=== PATIENT | female | born 1950 | race Hispanic/Latino ===

== ENCOUNTER → 2019-02-12 | Day surgery (SDC) | payer MEDICARE, OTHER ==
[2019-02-07 15:27] LABS: BASOPHILS # (AUTO) 0.1 (0.0-0.1); BASOPHILS % 0.6 % (0.0-1.0); EOSINOPHILS # (AUTO) 0.1 (0.0-0.4); EOSINOPHILS % 1.6 % (0.0-6.0); HEMATOCRIT 40.5 % (34.2-44.1); HEMOGLOBIN 13.5 g/dL (12.0-16.0); LYMPHOCYTES # (AUTO) 2.4 (1.0-3.2); MEAN CORPUSCULAR HEMOGLOBIN 30.1 pg (28-32); MEAN CORPUSCULAR HGB CONC 33.3 g/dL (31-35); MEAN CORPUSCULAR VOLUME 90.2 fL (81-99); MONOCYTES # (AUTO) 0.6 (0.2-0.8); MONOCYTES % 7.3 % (4.4-11.3); NEUTROPHILS % 61.1 % (38.7-80.0); PLATELET COUNT 239 x10e3/uL (140-360); RED BLOOD COUNT 4.49 x10e6/uL (3.6-5.1); RED CELL DISTRIBUTION WIDTH 13.5 % (11.7-14.4)
[2019-02-07 15:41] LABS: ANION GAP 11.7 mmol/L (8-16); BLOOD UREA NITROGEN 24 mg/dL (7-26); BUN/CREATININE RATIO 26 (6-25); CALCIUM 10.2 mg/dL (8.4-10.2); CARBON DIOXIDE 26 mmol/L (22-29); CHLORIDE 106 mmol/L (98-107); CREATININE, SERUM 0.92 mg/dL (0.57-1.11); EST GLOMERULAR FILTRATION RATE > 60 ML/MIN (60-); GLUCOSE 103 mg/dL (74-118); POTASSIUM 4.7 mmol/L (3.5-5.1); SODIUM 139 mmol/L (136-145)
--- NOTE | 2019-02-07 16:16 | Diagnostic Imaging Report ---
EXAMINATION: CHEST 2 VIEWS INDICATION: Pre-op orders. COMPARISON: None FINDINGS: TUBES and LINES: None. LUNGS: Lungs are well inflated. There is no evidence of pneumonia or pulmonary edema. PLEURA: No pleural effusion or pneumothorax. HEART AND MEDIASTINUM: The cardiomediastinal silhouette is unremarkable. BONES AND SOFT TISSUES: No acute osseous abnormality. There is a healed fracture of the right mid clavicle. UPPER ABDOMEN: No free air under the diaphragm. There are cholecystectomy clips. IMPRESSION: No acute radiographic abnormality. Signed by: Dr. Suraj Conti MD on 02/07/2019 4:13 PM
[~2019-02-12] MED LIST: AMLODIPINE BESY10 MG PO; ATORVASTATIN CA40 MG PO; DEXAMETHASONE SOD PHOS INJ 4 MG/ML VIAL ONE; FAMOTIDINE20 MG PO; FENTANYL CITRATE/PF 100MCG/2 ML INJ ONE; IOPAMIDOL 610MG/1ML 300 MG/ML VIAL IV ONE; JANUVIA100 MG PO; LEVOFLOXACIN 500MG/D5W 100ML 100 ML IV ONE; LIDOCAINE HCL 2% LOCAL INJ 5 ML SDV VIAL INJ ONE; LISINOPRIL10 MG PO; METOCLOPRAMIDE10 MG PO; MIDAZOLAM HCL 2 MG/2 ML VIAL ONE; OMEPRAZOLE40 MG PO; ONDANSETRON HCL INJ 2MG/ML 2ML 2 MG/ML VIAL ONE; PROPOFOL IV EMULSION 10 MG/ML 20 ML VIAL ONE; SEVOFLURANE INHAL SOLN 250 ML PEN BTL ONE; URSODIOL300 MG PO
--- OUTSIDE RECORDS SUMMARY | 2019-02-12 05:14 | XMS REPORT ---
Author Author [facility] Organization [facility] Address Unknown Phone Unavailable Care Team Providers Care Yarn Winder Name Role Phone LANDEN VANESSA Unavailable Unavailable ANMOL ZULETA Unavailable Unavailable Payers Payer Name Policy Type Policy Number Effective Date Expiration Date Problems This patient has no known problems. Allergies, Adverse Reactions, Alerts Allergy Name Allergy Type Status Severity Reaction(s) Onset Date Inactive Date Treating Clinician Comments ciprofloxacin HCl DA Active PR 2018-03-12 00:00:00 Penicillins DA Active MO 2018-03-12 00:00:00 ciprofloxacin DA Active MO 2018-03-12 00:00:00 LACTOSE INTOLERANT DA Active U 2012-06-30 00:00:00 Medications This patient has no known medications. Results Test Description Test Time Test Comments Text Results Atomic Results Result Comments CHEST 2 VIEWS 2019-02-07 16:11:00 [facility] [address] [address] Patient Name: EULALIA IBANEZ MR #: [id number] : 1950 Age/Sex: 68/F Req #: [id number] Adm Physician: Ordered by: LANDEN VANESSA MD Report #: [id number] Location: OR Room/Bed: Procedure: [id number] DX/CHEST 2 VIEWS Exam Date: 02/07/19 Exam Time: 1514 REPORT STATUS: Signed EXAMINATION: CHEST 2 VIEWS INDICATION: Pre-op or ders. COMPARISON: None FINDINGS: TUBES and LINES: None. LUNGS: Lungs are well inflated. There is no evidence of pneumonia or pulmonary edema. PLEURA: No pleural effusion or pneumothorax. HEART AND MEDIASTINUM: The cardiomediastinal silhouette is unremarkable. BONES AND SOFT TISSUES: No acute osseous abnormality. There is a healed fracture of the right mid clavicle. UPPER ABDOMEN: No free air under the diaphragm. There are cholecystectomy clips. IMPRESSION: No acute radiographic abnormality. Signed by: Dr. Deuce Moreland MD on 02/07/2019 4:13 PM Dictated By: DEUCE MORELAND MD 1613 Transcribed By: MARISA on 02/07/19 1613 COPY TO: LANDEN VANESSA MD CT, ABDOMEN 2017-06-14 22:10:00 Reason for exam:->abdominal pain FINAL REPORT CLINICAL HISTORY: Left lower quadrant pain FINDINGS: Multiple axial images of the abdomen and pelvis were performed after the uncomplicated administration of IV contrast. Oral contrast was not given. This exam was performed according to our departmental dose-optimization program, which includes automated exposure control, adjustment of the mA and/or kV according to patient size and/or use of the iterative reconstruction technique. Comparison:None. Lower chest: Bilateral dependent atelectasis. No pleural effusion or pneumothorax. Visualized cardiac contours normal. Liver: Several hepatic cysts and hypodensities too small to characterize. The largest is in the right liver measuring 3.6 x 3.0 cm. Gallbladder and biliary tree: Previous cholecystectomy Spleen: No significant findings. Adrenal Glands: No significant findings. Kidneys and ureters: Bilateral subcentimeter hypodensities, too small to characterize Stomach and Duodenum: Small hiatal hernia Pancreas: No significant findings. Bowel: No obstruction or pneumatosis intestinalis Appendix: Normal. Bladder: No significant findings. Major vascular structures: No significant findings. Reproductive organs: No significant findings. Other: Small, fat filled umbilical hernia and adjacent, small fat filled supraumbilical hernia. Skeleton: Bilateral L5 pars defects with grade 1 anterolisthesis of L5 on S1 and associated degenerative change IMPRESSION: No acute abnormality to explain the patient's left lower quadrant pain. Small hiatal hernia. Previous cholecystectomy. Small fat filled umbilical and adjacent superimposed focal midline ventral hernias. Bilateral L5 pars defects with associated grade 1 anterolisthesis of L5 on S1 and degenerative change. Signed: Evelyn Ventura MDReport Verified Date/Time: 06/14/2017 22:10:49 Reading Location: [address] Reading Room ALYSIS W/ MICROSCOPIC 2017-06-14 19:38:00 COLOR (BEAKER) (test qrdk=439) Yellow CLARITY (BEAKER) (test jein=922) Clear SPECIFIC GRAVITY UA (BEAKER) (test xzmc=202) 1.017 1.001-1.035 PH UA (BEAKER) (test tnyk=096) 6.5 5.0-8.0 PROTEIN UA (BEAKER) (test csps=647) Negative Negative GLUCOSE UA (BEAKER) (test rbpn=395) Negative Negative KETONES UA (BEAKER) (test abma=047) Negative Negative BILIRUBIN UA (BEAKER) (test hlga=358) Negative Negative BLOOD UA (BEAKER) (test lzxh=936) Negative Negative NITRITE UA (BEAKER) (test pkap=724) Negative Negative LEUKOCYTE ESTERASE UA (BEAKER) (test ahrk=894) Large Negative UROBILINOGEN UA (BEAKER) (test aorz=674) 2.0 mg/dL 0.2-1.0 RBC UA (BEAKER) (test rjxd=330) < /HPF WBC UA (BEAKER) (test twmn=048) 10 /HPF MUCUS (BEAKER) (test grth=2744) Rare SQUAMOUS EPITHELIAL (BEAKER) (test lkkf=731) 9 /HPF SOURCE(BEAKER) (test wepo=9154) Urine, Clean Catch CREATINE KINASE (CK), TOTAL AND [id number] 19:30:00* Test Item Value Reference Range Comments CREATINE KINASE TOTAL (BEAKER) (test xrep=375) 84 U/L 29-200 CREATINE KINASE-MB (BEAKER) (test uylu=508) 1.2 ng/mL 0.0-6.6 CREATINE KINASE-MB INDEX (BEAKER) (test ivox=143) 1.4 % CK-MB Reference Range:<6.7 Normal6.7-10.0 Borderline>10.0 Abnormal TROPONIN [id number] 19:30:00* Test Item Value Reference Range Comments TROPONIN I (BEAKER) (test ntzw=060) < ng/mL 0.00-0.03 Troponin I (TnI) levels must be interpreted in the context of the presenting sym ptoms and the clinical findings. Elevated TnI levels indicate myocardial damage, but are not specific for ischemic heart disease. Elevated TnI levels are seen in patients with other cardiac conditions (including myocarditis and congestive h eart failure), and slight TnI elevations occur in patients with other conditions , including sepsis, renal failure, acidosis, acute neurological disease, and per sistent tachyarrhythmia.BASIC METABOLIC [id number] 19:26:00* Test Item Value Reference Range Comments SODIUM (BEAKER) (test xxsu=592) 141 meq/L 136-145 POTASSIUM (BEAKER) (test jrkm=597) 4.1 meq/L 3.5-5.1 Specimen slightly hemolyzed CHLORIDE (BEAKER) (test uhwq=220) 107 meq/L 98-107 CO2 (BEAKER) (test gpvq=572) 24 meq/L 22-29 BLOOD UREA NITROGEN (BEAKER) (test xkzi=346) 19 mg/dL 7-21 CREATININE (BEAKER) (test jxqu=231) 0.93 mg/dL 0.57-1.25 Specimen slightly hemolyzed GLUCOSE RANDOM (BEAKER) (test ahfq=342) 99 mg/dL 70-105 CALCIUM (BEAKER) (test jsup=534) 9.6 mg/dL 8.4-10.2 EGFR (BEAKER) (test ixhz=6925) mL/min/1.73 sq m INSUFFICIENT CLINICAL DATA TO CALCULATE ESTIMATED GFR. [id number] 19:22:00* Test Item Value Reference Range Comments LIPASE (BEAKER) (test nphe=668) 29 U/L 8-78 [id number] 19:22:00* Test Item Value Reference Range Comments AMYLASE (BEAKER) (test gshq=239) 46 U/L 25-125 Specimen slightly hemolyzed HEPATIC FUNCTION [id number] 19:22:00* Test Item Value Reference Range Comments TOTAL PROTEIN (BEAKER) (test gmue=826) 7.8 gm/dL 6.0-8.3 Specimen slightly hemolyzed ALBUMIN (BEAKER) (test nlhn=9612) 4.5 g/dL 3.5-5.0 Specimen slightly hemolyzed BILIRUBIN TOTAL (BEAKER) (test twmw=339) 0.3 mg/dL 0.2-1.2 Specimen slightly hemolyzed BILIRUBIN DIRECT (BEAKER) (test gdny=984) 0.1 mg/dL 0.1-0.5 Specimen slightly hemolyzed ALKALINE PHOSPHATASE (BEAKER) (test rzei=340) 64 U/L 40-150 AST (SGOT) (BEAKER) (test jvmc=825) 30 U/L 5-34 Specimen slightly hemolyzed ALT (SGPT) (BEAKER) (test ygxm=129) 39 U/L 6-55 Specimen slightly hemolyzed CBC W/PLT COUNT & AUTO [id number] 19:01:00* Test Item Value Reference Range Comments WHITE BLOOD CELL COUNT (BEAKER) (test fbik=907) 6.8 K/ L 3.5-10.5 RED BLOOD CELL COUNT (BEAKER) (test lmtj=543) 4.37 M/ L 3.93-5.22 HEMOGLOBIN (BEAKER) (test pptz=053) 12.5 GM/DL 11.2-15.7 HEMATOCRIT (BEAKER) (test gkdj=852) 40.0 % 34.1-44.9 MEAN CORPUSCULAR VOLUME (BEAKER) (test foju=695) 91.5 fL 79.4-94.8 MEAN CORPUSCULAR HEMOGLOBIN (BEAKER) (test lwkh=259) 28.6 pg 25.6-32.2 MEAN CORPUSCULAR HEMOGLOBIN CONC (BEAKER) (test fjxl=268) 31.3 GM/DL 32.2-35.5 RED CELL DISTRIBUTION WIDTH (BEAKER) (test avha=046) 13.2 % 11.7-14.4 PLATELET COUNT (BEAKER) (test gsdz=910) 250 K/CU MM 150-450 MEAN PLATELET VOLUME (BEAKER) (test vujq=610) 10.2 fL 9.4-12.3 NUCLEATED RED BLOOD CELLS (BEAKER) (test sgag=843) 0 /100 WBC 0-0 NEUTROPHILS RELATIVE PERCENT (BEAKER) (test rglk=976) 50 % LYMPHOCYTES RELATIVE PERCENT (BEAKER) (test myge=734) 36 % MONOCYTES RELATIVE PERCENT (BEAKER) (test rhjq=712) 9 % EOSINOPHILS RELATIVE PERCENT (BEAKER) (test zoji=791) 4 % BASOPHILS RELATIVE PERCENT (BEAKER) (test yedc=721) 1 % NEUTROPHILS ABSOLUTE COUNT (BEAKER) (test wilf=890) 3.40 K/ L 1.56-6.13 LYMPHOCYTES ABSOLUTE COUNT (BEAKER) (test cnku=998) 2.47 K/ L 1.18-3.74 MONOCYTES ABSOLUTE COUNT (BEAKER) (test gmnl=546) 0.62 K/ L 0.24-0.36 EOSINOPHILS ABSOLUTE COUNT (BEAKER) (test whqt=395) 0.26 K/ L 0.04-0.36 BASOPHILS ABSOLUTE COUNT (BEAKER) (test rjew=441) 0.04 K/ L 0.01-0.08 IMMATURE GRANULOCYTES-RELATIVE PERCENT (BEAKER) (test opol=4606) 0 % 0-1
--- OUTSIDE RECORDS SUMMARY | 2019-02-12 05:14 | XMS REPORT | Clinical Summary ---
Author Author [facility] Address Unknown Phone Unavailable Care Team Providers Care Information Technology Security Analyst Name Role Phone Sharpless PCP Allergies Comments Active Allergy Reactions Severity Noted Date abd cramping/contractions Ciprofloxacin Hcl 06/14/2017 Penicillins Rash Low 06/14/2017 Medications End Date Status Medication Sig Dispensed Refills Start Date 06/14/2018 omeprazole (PRILOSEC) 20 Take 1 30 capsule 0 201 MG capsule capsule (20 7 mg total) by mouth daily. Active Problems Not on file Social History Date Tobacco Use Types Packs/Day Years Used Former Smoker Smokeless Tobacco: Never Used Alcohol Use Drinks/Week oz/Week Comments No Sex Assigned at Date Recorded Not on file Industry Job Start Date Occupation Not on file Not on file Not on file Travel End Travel History Travel Start No recent travel history available. Last Filed Vital Signs Not on file Plan of Treatment Not on file Results Not on fileafter 02/11/2018 Insurance Payer Benefit Subscriber ID Type Phone Address Plan / Group [employer] [place] [employer] xxxxxxxxx CARE [place] MEDICA[place] - MEDICAID [place] MEDICAID xxxxxxxxx Medicaid CARE [employer] Non-Contra cted
[2019-02-12 08:45] VITALS: BP 127/61
--- NOTE | 2019-02-12 15:37 | Operative Report ---
DATE OF PROCEDURE: 02/12/2019 SURGEON: Tucker Kingston MD PREOPERATIVE DIAGNOSES: 1. Multiple chronic urinary tract infections. 2. Clinical signs of interstitial cystitis without hematuria. POSTOPERATIVE DIAGNOSES: 1. Multiple chronic urinary tract infections. 2. Clinical signs of interstitial cystitis without hematuria. PROCEDURES: 1. Cystourethroscopy with hydrodistention (entirely separate procedure for clinical signs and symptoms of interstitial cystitis). 2. Cystourethroscopy with left ureteral catheterization and left retrograde pyelogram (separate procedure for multiple chronic urinary tract infections). 3. Cystourethroscopy with right ureteral catheterization and right retrograde pyelogram (separate procedure for multiple urinary tract infections). 4. Supervision of fluoroscopy. 5. Interpretation of retrograde pyelography. ANESTHESIA: General. ESTIMATED BLOOD LOSS: Minimal. COMPLICATIONS: None. INDICATION FOR PROCEDURE: Mrs. Mcdaniel is a 68-year-old female with multiple chronic urinary tract infections. She and I had a long discussion about alternatives, risks, and benefits including shock wave lithotripsy, doing nothing, cystoscopy, IVP, retrograde pyelograms, renal ultrasound, hydrodistention. She voiced understanding of the options, the alternatives, the risks, and benefits and she elected to proceed. PROCEDURE IN DETAIL: After informed consent was obtained, the patient was taken to the operative suite. She was placed supine on the operating table. She underwent general anesthesia by Anesthesia service. She was placed in the dorsal lithotomy position, sterilely prepped and draped in standard fashion for cystoscopy. Positive vaginal atrophy noted. There was a grade 2 cystocele, no evidence of masses, normal-appearing urethra. Urethra was catheterized with a 21-Yi cystoscope and panendoscopy of the bladder revealed no tumors, no stones. Hydrodistention was performed with a capacity of 800 mL, no glomerulations, no Hunner's ulcers. Bilateral retrograde pyelogram was performed, which was normal. The bladder was drained and the patient was awakened from anesthesia and transported to the recovery room in excellent condition. Supervision of fluoroscopy and interpretation of retrograde pyelography: I was present for the entire procedure and I supervised the use of fluoroscopy. There was no radiologist present. Attention was turned towards the left and right ureteral orifices which were catheterized with an 8-Yi cone-tipped catheter. In retrograde fashion, contrast was injected revealing delicate ureters, delicate pelvocaliceal systems, no evidence of filling defects, no evidence of hydronephrosis. IMPRESSION: Normal retrograde pyelograms. MD MIMA Christy/MODL /[id number]
== END | disposition home or self-care (01) ==
LOC: OR 05:00
PROVIDERS: ATTEND Urology
DX: N39.0 Urinary tract infection, site not specified (principal); I10 Essential (primary) hypertension; E78.5 Hyperlipidemia, unspecified; K21.9 Gastro-esophageal reflux disease without esophagitis; E11.9 Type 2 diabetes mellitus without complications; Z79.84 Long term (current) use of oral hypoglycemic drugs; Z01.810 Encounter for preprocedural cardiovascular examination; Z01.812 Encounter for preprocedural laboratory examination; Z01.818 Encounter for other preprocedural examination
CPT/HCPCS: 36415 ×2; 52005; 71046; 74420; 80048; 82948; 85025; 93005; C1758; J1100; J1956; J2001; J2250; J2405; J2704; Q9967